=== PATIENT | male | born 2000 | race Hispanic/Latino ===

== ENCOUNTER 2024-07-30 07:01 | Emergency (ER) | payer OTHER ==
[~2024-07-30] VITALS: Ht 175.3 cm; Wt 82.0 kg
[2024-07-30 07:15] VITALS: BP 123/90
[2024-07-30 07:30] VITALS: BP 120/86
[2024-07-30] MEDS ORDERED: Diph, Acellular Pertussis, Tet 0.5 ML/VIAL (Tdap) SDV IM ONE (07:55)
== END 2024-07-30 08:30 | disposition left against medical advice (07) | DRG 605 ==
LOC: ED 07:01
DX: S00.83XA Contusion of other part of head, initial encounter (principal); R51.9 Headache, unspecified; M25.511 Pain in right shoulder; M54.9 Dorsalgia, unspecified; V49.50XA Passenger injured in collision with unspecified motor vehicles in traffic accident, initial encounter; Z72.0 Tobacco use; Z53.29 Procedure and treatment not carried out because of patient's decision for other reasons